=== PATIENT | male | born 1985 | race Caucasian/White ===

== ENCOUNTER 2017-08-16 15:02 | Emergency (ER) | payer BC ==
--- NOTE | 2017-08-16 16:15 | EDM.PDOC ---
ED HPI GENERAL MEDICAL PROBLEM - General Chief Complaint: Neuro Symptoms/Deficits Stated Complaint: RIGHT SIDE OF FACE NUMB/DROOPING Time Seen by Provider: 08/16/17 15:14 Source of Information: Reports: Patient, RN Notes Reviewed - History of Present Illness INITIAL COMMENTS - FREE TEXT/NARRATIVE: 31-year-old male comes in with right facial droop. This first started yesterday. Continues today, maybe slightly worse today. He also notices that he cannot close the right on as forcefully as the left. He states when he awakened this past morning he was drooling slightly. He feels like his taste is slightly off right side of his tongue and that the right side of his face feels "different from his left. No speech difficulty. No focal weakness hands arms or legs. No headache. He was ill with what sounds like influenza late last week and earlier this week not that long ago. - Related Data Allergies Allergy/AdvReac Type Severity Reaction Status Date / Time No Known Allergies Allergy Verified 08/16/17 15:17 Home Meds: Home Meds Acyclovir 800 mg PO 5XDAY #30 tablet 08/16/17 [Rx] Past Medical History HEENT History: Reports: Other (See Below) Other HEENT History: TMJ Social & Family History - Tobacco Use Smoking Status *Q: Former Smoker Used Tobacco, but Quit: Yes Month Tobacco Last Used: 2.5 yrs - Caffeine Use Caffeine Use: Reports: Coffee, Soda - Recreational Drug Use Recreational Drug Use: No ED ROS GENERAL - Review of Systems Review Of Systems: See Below Constitutional: Denies: Fever, Chills, Diaphoresis HEENT: Denies: Ear Pain, Eye Pain, Sinus Problem, Throat Pain Respiratory: Reports: Cough. Denies: Shortness of Breath Cardiovascular: Denies: Chest Pain (Resolving) GI/Abdominal: Denies: Abdominal Pain, Nausea, Vomiting Musculoskeletal: Denies: Neck Pain, Shoulder Pain, Arm Pain, Back Pain Skin: Denies: Rash Neurological: Reports: Weakness (Right facial droop). Denies: Headache, Numbness, Tingling, Trouble Speaking, Difficulty Walking ED EXAM, NEURO - Physical Exam Exam: See Below General Appearance: Alert, No Apparent Distress Eye Exam: Bilateral Eye: PERRL Ears: Normal External Exam, Normal Canal, Normal TMs Nose: Normal Inspection Throat/Mouth: Normal Inspection, Normal Oropharynx Head Exam: Atraumatic. No: Facial Swelling, Facial Tenderness Neck: Supple, Full Range of Motion Respiratory/Chest: No Respiratory Distress, Lungs Clear, Normal Breath Sounds Cardiovascular: Normal Peripheral Pulses, Regular Rate, Rhythm GI/Abdominal: Soft, Non-Tender Neurological: Alert, Oriented x 3, Other (Very mild right facial droop, very mild weakness of right lid closure compared to the left but able to close the right eyelids completely, finger to nose testing normal) Extremities: Normal Inspection, Normal Range of Motion Skin Exam: Dry, Normal Color Course - Vital Signs Last Recorded V/S: Last Vital Signs Temp 98.2 F 08/16/17 15:12 Pulse 88 08/16/17 15:12 Resp 20 08/16/17 15:12 BP 146/100 H 08/16/17 15:12 Pulse Ox 98 08/16/17 15:12 - Orders/Labs/Meds Orders: Active Orders 24 hr Category Date Time Status EKG Documentation Completion [RC] ASDIRECTED Care 08/16/17 18:09 Active POC Glucose [Blood Glucose Check, Bedside] [RC] ONETIME Care 08/16/17 15:18 Active EKG 12 Lead [EK] Stat Ther 08/16/17 18:08 Ordered Labs: Laboratory Tests 08/16/17 Range/Units 15:41 POC Glucose 193 H (70-105) mg/dL Departure - Departure Time of Disposition: 16:13 Disposition: Home, Self-Care 01 Condition: Fair Clinical Impression: Facial paralysis/[place] palsy - Discharge Information Prescriptions: Acyclovir 800 mg PO 5XDAY #30 tablet Instructions: [place] Palsy, Adult Referrals: PCP,None [Primary Care Provider] - Forms: ED Department Discharge Additional Instructions: Acyclovir 800 mg 5 times daily for 1 week, drink plenty of fluids to maintain hydration, vitamin C her multivitamin recommended. Prednisone as prescribed. Follow-up clinic in about 10-14 days. Return to ED as needed. - My Orders Last 24 Hours: My Active Orders 08/16/17 15:18 POC Glucose [Blood Glucose Check, Bedside] [RC] ONETIME 08/16/17 18:08 EKG 12 Lead [EK] Stat 08/16/17 18:09 EKG Documentation Completion [RC] ASDIRECTED - Assessment/Plan Last 24 Hours: My Active Orders 08/16/17 15:18 POC Glucose [Blood Glucose Check, Bedside] [RC] ONETIME 08/16/17 18:08 EKG 12 Lead [EK] Stat 08/16/17 18:09 EKG Documentation Completion [RC] ASDIRECTED
== END 2017-08-16 16:27 | disposition home or self-care (01) ==
LOC: JD.ED 15:02
DX: G51.0 Bell's palsy (principal); Z87.891 Personal history of nicotine dependence
CPT/HCPCS: 82962; 93005; 99284; 99284-25